=== PATIENT | female | born 1950 | race Caucasian/White ===

== ENCOUNTER 2017-02-20 16:48 | Inpatient (IN) | payer BC ==
[~2017-02-20] VITALS: Ht 170.2 cm; Wt 45.4 kg
[~2017-02-20 16:48] MED LIST: ASPIRIN325 MG PO; AUGMENTIN 875-11 TAB PO; B-12 DOTS500 MCG PO; BAYER CHEWABLE81 MG PO; CIPRO500 MG PO; COUMADIN3 MG PO; ELIQUIS5 MG PO; FEXOFENADINE HC60 MG PO; FOLATE0.4 MG PO; IMODIUM A-D2 MG PO; LOPRESSOR25 MG PO; MAG-OX 400 MG400 MG PO; MAG-OXIDE400 MG PO; NICODERM C1 PATCH .3 TD; NORCO 10/325 TA1 TA1 PO; PROTONIX40 MG PO; PROVENTIL HFA6.7 GM INH; ROCEPHIN 1 GM IN1 GM IV; TUMS500 MG PO; TUSSIONEX 5 ML S5 ML PO; TYLENOL 8 HOUR650 MG PO; VANCOMYCIN250 MG/51 PO
[2017-02-20 17:39] VITALS: BP 109/61; BMI 15.7
[2017-02-20 18:29] LABS: BASOPHILS 0.1 % (0-2); EOSINOPHILS 0.3 % (0-7); HEMATOCRIT 36.5 % (36.0-48.0); HEMOGLOBIN 12.9 g/dL (12-16); IMMATURE GRANULOCYTES 0.5 % (0-5); LYMPHOCYTES 13.5 % (15-50); MCH 33.2 pg (26.0-34.0); MCHC 35.3 g/dL (31.0-37.0); MCV 93.8 fL (80.0-100.0); MONOCYTES 6.5 % (2-11); NEUTROPHILS 79.1 % (40-80); RBC 3.89 10x6/uL (4.00-5.40); RDW 12.2 % (11.5-14.5); WBC 9.2 10x3/uL (4.8-10.8)
[2017-02-20 18:30] LABS: PLATELET COUNT 139 10x3/uL (130-400)
[2017-02-20 19:11] LABS: ALBUMIN 2.2 g/dL (3.4-5.0); ALKALINE PHOSPHATASE 106 U/L (46-116); ALT (SGPT) 11 U/L (10-68); BILIRUBIN - TOTAL 1.11 mg/dL (0.2-1.3); CALC OSMOLALITY 250 mosm/kg (275-300); CALCIUM 8.4 mg/dL (8.5-10.1); CARBON DIOXIDE 34.6 mmol/L (21.0-32.0); CHLORIDE - SERUM 86 mmol/L (98-107); CREATININE - SERUM 0.5 mg/dL (0.6-1.3); GLUCOSE 96 mg/dL (74-106); PROTEIN - SERUM 5.7 g/dL (6.4-8.2); SODIUM 126 mmol/L (136-145); T4 THYROXINE 9.4 ug/dL (4.7-13.3); THYROID STIMULATING HORMONE 1.45 uIU/mL (0.36-3.74); UREA NITROGEN 6 mg/dL (7-18); eGFR NON AFRICAN AMERICAN > 90 mL/min (90-120)
[2017-02-20 19:17] LABS: POTASSIUM - SERUM 2.2 mmol/L (3.5-5.1)
--- NOTE | 2017-02-20 23:39 | NUR ---
IV SITED TO LEFT FOREARM X 2 ATTEMPTS. 22G. GOOD BLOOD RETURN. FLUSHES W/O DIFFICULTY. PT TOLERATED WELL. SIDE RAILS X 2. BED IS LOW. CALL LIGHT IN REACH.
[2017-02-20 23:59] VITALS: BP 88/54
[2017-02-21 04:00] VITALS: BP 94/70
[2017-02-21 05:59] LABS: CALCIUM 8.3 mg/dL (8.5-10.1); CARBON DIOXIDE 34.5 mmol/L (21.0-32.0); CHLORIDE - SERUM 94 mmol/L (98-107); CREATININE - SERUM 0.4 mg/dL (0.6-1.3); GLUCOSE 95 mg/dL (74-106); SODIUM 132 mmol/L (136-145); eGFR NON AFRICAN AMERICAN > 90 mL/min (90-120)
[2017-02-21 06:00] LABS: BASOPHILS 0.3 % (0-2); EOSINOPHILS 0.5 % (0-7); HEMATOCRIT 34.2 % (36.0-48.0); HEMOGLOBIN 12.1 g/dL (12-16); IMMATURE GRANULOCYTES 0.4 % (0-5); LYMPHOCYTES 17.8 % (15-50); MCH 32.5 pg (26.0-34.0); MCHC 35.4 g/dL (31.0-37.0); MCV 91.9 fL (80.0-100.0); MEAN PLATELET VOLUME 10.9 fL (7.4-10.4); MONOCYTES 8.2 % (2-11); NEUTROPHILS 72.8 % (40-80); PLATELET COUNT 152 10x3/uL (130-400); RBC 3.72 10x6/uL (4.00-5.40); RDW 12.1 % (11.5-14.5); WBC 7.6 10x3/uL (4.8-10.8)
[2017-02-21 06:03] LABS: CALC OSMOLALITY 261 mosm/kg (275-300); POTASSIUM - SERUM 4.2 mmol/L (3.5-5.1); UREA NITROGEN 4 mg/dL (7-18)
--- NOTE | 2017-02-21 10:20 | NUR ---
PT RATED PAIN 10/10 ON ABDOMEN, CONSTANT, DULL PAIN. NORCO 5MG TAB GIVEN. DRAIN ON LEFT SIDE OF ABDOMEN LEAKING. DRESSING CHANGED. PT DENIES OTHER NEEDS AT THIS TIME.
--- NOTE | 2017-02-21 10:32 | NUR ---
Wound care consult: Noted wound on plantar surface of right great toe. It measures 1.5cm x 1cm x 0.6cm x 0.4cm from 12-12 oclock. The wound bed is wells necrotic tissue. It is wet and has yellow drainage. No odor is noted. There is also a wound on right lateral foot measuring 1cm x 1cm x 0.4cm. The wound bed is wells and is moist. There is a yellow drainage with no odor. Recommend Maxorb AG to be placed on wound beds and changed daily. Wound care will continue monitoring.
--- NOTE | 2017-02-21 11:09 | NUR ---
PT IN BED SPEAKING ON THE PHONE. NO NEEDS AT THIS TIME.
[2017-02-21 13:40] VITALS: BP 84/49
[2017-02-21 14:09] VITALS: Ht 170.2 cm; Wt 45.4 kg
--- NOTE | 2017-02-21 15:17 | NUR ---
Patient Name: JARED BAIRD Admission Status: Urgent Accout number: [id number] Admission Date: 02-20-2017 : 1950 Admission Diagnosis: Attending: RAFI ENGEL Current LOS: 1 Anticipated DC Date: 02-23-2017 Planned Disposition: Home Primary Insurance: [employer] [facility] EX[facility] Discharge Planning Comments: CM MET WITH PATIENT WITH D/C NEEDS AND PLANS. PATIENT STATED SHE LIVES WITH HER SPOUSE AND HER SISTER (HEMANT) WILL DRIVE HER HOME. PATIENT HAS NO STEPS OR STAIRS AT HOME. PATIENT STATED SHE IS INDEPENDENT WITH HER CARE AND HAS A WALKER, WHEELCHAIR, SHOWER CHAIR, AND BS COMMODE AT HOME. PATIENTS PCP IS DR. ENGEL AND PHARMACY IS [facility]. PATIENT DOES NOT WANT HOME HEALTH AT THIS TIME. CM WILL CONTINUE TO FOLLOW PATIENT WITH D/C NEEDS AND PLANS. PCP DR[facility]- [phone] HEMANT (SISTER) [phone] Bench Scientist: Nadia Liriano Is the patient Alert and Oriented? Yes 0 * How many steps to enter\exit or inside your home? 0 0 * PCP DR. VILLATORO 0 * Pharmacy [facility] * Preadmission Environment Home with Family 0 * ADLs Independent 0 * Equipment Bedside Commode Shower Chair Walker Wheelchair 0 * List name and contact numbers for known caregivers / representatives who currently or will assist patient after discharge: HEMANT (SISTER) [phone] 0 * Community resources currently utilized None 0 * Additional services required to return to the preadmission environment? Yes 0 * Can the patient safely return to the preadmission environment? Yes 0 * Has this patient been hospitalized within the prior 30 days at any hospital? No 0 Grand Total: 0
--- NOTE | 2017-02-21 17:00 | NUR ---
INCONTINENT EPISODE. COMPLETE BED LINEN CHANGE AND CLEAN GOWN PROVIDED. STAGE TWO ULCER NOTED ON MIDDLE OF BACK AND STAGE 2 NOTED ON RIGHT BUTTOCKS, REDNESS NOTED ON RIGHT AND LEFT BUTTOCKS. PULLED UP IN BED AND REPOSITONED.
[2017-02-21 17:15] VITALS: BP 90/48
[2017-02-21 19:00] VITALS: BP 92/50
--- NOTE | 2017-02-22 01:18 | NUR ---
1943)awake/alert incontinent of urine complete linen chge pericare donebrace to rt. wrist with sling intact. fingers nailbeds pink warm blanches well. denies pain at present time. willcontinue to monitor neurovascular for any chges. and follow current plan of care
[2017-02-22 04:00] VITALS: BP 98/56
[2017-02-22 04:55] LABS: BASOPHILS 0.2 % (0-2); EOSINOPHILS 0.6 % (0-7); HEMATOCRIT 33.4 % (36.0-48.0); HEMOGLOBIN 11.7 g/dL (12-16); IMMATURE GRANULOCYTES 0.4 % (0-5); LYMPHOCYTES 23.2 % (15-50); MCH 33.1 pg (26.0-34.0); MEAN PLATELET VOLUME 10.2 fL (7.4-10.4); NEUTROPHILS 66.6 % (40-80); PLATELET COUNT 176 10x3/uL (130-400); RBC 3.53 10x6/uL (4.00-5.40); RDW 12.3 % (11.5-14.5); WBC 8.2 10x3/uL (4.8-10.8)
[2017-02-22 04:56] LABS: MCV 94.6 fL (80.0-100.0)
[2017-02-22 05:05] LABS: CALC OSMOLALITY 270 mosm/kg (275-300); CHLORIDE - SERUM 98 mmol/L (98-107); CREATININE - SERUM 0.4 mg/dL (0.6-1.3); GLUCOSE 99 mg/dL (74-106); SODIUM 137 mmol/L (136-145); UREA NITROGEN 3 mg/dL (7-18); eGFR NON AFRICAN AMERICAN > 90 mL/min (90-120)
[2017-02-22 05:35] LABS: POTASSIUM - SERUM 2.4 mmol/L (3.5-5.1)
--- NOTE | 2017-02-22 07:24 | NUR ---
PT RESTING COMFORTABLY ON HER BACK. ANSWERS QUESTION APPROPRIATELY. REPORTS NO PAIN AT THIS TIME. LIV ON RIGHT WRIST WITH SLING. R HAND IS WARM WITH SOME SWELLING. L FOREARM PERIPHERAL IV INFUSING NS AT 100ML/HR. BED LOW POSITION, BED ALARM ON, SIDE RAILS UP X 2, CALL LIGHT IN REACH. REST OF ASSESSMENT IN ASSESMENT FLOW SHEET.
--- NOTE | 2017-02-22 07:31 | NUR ---
PT AWAKE AND ALERT. BREATHING TREATMENT IN PROGRESS. RATES PAIN 8/10 ON LEFT HIP AND KNEE. LEFT KNEE HAS A LITTLE BIT OF SWELLING. LEFT FOREARM PERIPHERAL IV INFUSING NS AT 75ML/HR. LUNGS SOUNDS ARE CLEAR THROUGH OUT. BS ACTIVE X 4 QUADRANTS. SCD'S ON R AND L CALF. CURRENTLY RESTING ON HER BACK. BED ALARM ON, SIDE RAILS UP X 2. DENIES OTHER NEEDS AT THIS TIME.
[2017-02-22 08:20] LABS: FOLATE (FOLIC ACID) - SERUM 8.6 ng/mL (>3.0)
[2017-02-22 09:49] VITALS: BP 109/61
--- NOTE | 2017-02-22 09:53 | NUR ---
INCONTINENT EPISODE. PERICARE PROVIDED, COMPLETE BEDING CHANGE. ATTEMPTED TO USE BED JUAREZ. NO BM NOTED AT THIS TIME. PT RESTING COMFORTABLY. BED LOW POSITION. CALL LIGHT IN REACH.
--- NOTE | 2017-02-22 09:58 | NUR ---
Nutrition Calorie Count: Pt was on a regular diet at this time. Breakfast 02/21/17:361 kcal26 g protein Lunch 02/21/17:319 kcal 6 g protein Dinner02/21/17: 163 kcal 3 g protein Total02/21/17:843 kcal35 g protein Pt is not meeting est nutritional needs with po intake. Will d/c calorie count r/t diet change to clear liquid. RD following.
--- NOTE | 2017-02-22 14:09 | NUR ---
PT HAD BM. BED PAD CHANGED. PERICARE PROVIDED. CLEAN GOWN PROVIDED. DENIES OTHER NEEDS AT THIS TIME.
[2017-02-22 14:21] VITALS: BP 106/61
--- NOTE | 2017-02-22 16:47 | NUR ---
INCONTINENT EPISODE. BED PAD AND CLEAN GOWN PROVIDED. PERICARE GIVEN. PULLED UP IN BED AND REPOSITONED. PT SISTER IN ROOM WITH HER. DENIES OTHER NEEDS AT THIS TIME.
[2017-02-22 17:01] VITALS: BP 103/59
--- NOTE | 2017-02-22 17:37 | HP ---
PATIENT: JARED BAIRD MEDICAL RECORD: [id number] ACCOUNT: [id number] LOCATION:[id number] : 54 ADMISSION DATE: 02/20/17 HISTORY AND PHYSICAL EXAMINATION DATE OF ADMISSION: 02/20/2017. CHIEF COMPLAINT: Confusion. HISTORY OF PRESENT ILLNESS: The patient is a 66-year-old female, who over the last couple of days, had intermittent confusion. The patient states she stopped drinking on 15 of January. She is accompanied by her sister and brought along through here from [place]. The patient wishes to be admitted for her confusion evaluation. She also has suffered from malnutrition. PAST MEDICAL HISTORY: Significant that she has had a history of lung biopsy in the past. Also, she has had a history of tachycardia, hyperlipidemia, gastroesophageal reflux, and hypertension. She has had lumbar fracture in the past. FAMILY HISTORY: Father of lung cancer. Mother had diabetes mellitus. 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 The patient states she is a moderate alcohol user, but has stopped some 3 weeks ago. She was born and raised in [place]. She has been in [place] for 30+ years. Her habit is 2 packs per day smoker. MEDICATIONS: Includes Protonix 40 mg once a day and Detrol 2 mg p.o. b.i.d. ALLERGIES: She has no known drug allergies. REVIEW OF SYSTEMS: CONSTITUTIONAL: She denies any headaches, seizure or syncope. She denies change in visual or auditory acuity. PULMONARY: She does report having cough and congestion. CARDIOVASCULAR: She had no chest pain, palpitation, PND or orthopnea. GASTROINTESTINAL: No chronic nausea, vomiting, melena or hematochezia. GENITOURINARY: No urgency, frequency or dysuria. PHYSICAL EXAMINATION: VITAL SIGNS: The patient's weight was 100 pounds, her BMI 16.1, pulse 110, blood pressure is 80/60 and temperature is 97.4. GENERAL: She is alert. She is oriented to person, place, but not time. HEENT: Head is normocephalic. No lesions. Ears: TMs clear. Eyes: Pupils equal, round and reactive to light. Her extraocular movements are intact. Nasal cavity, oral cavity and oropharynx clear. NECK: Supple. There is no adenopathy. HEART: Has a regular rate and rhythm without any murmurs, gallops or rubs. LUNGS: Clear. ABDOMEN: Soft, bowel sounds are positive. EXTREMITIES: The patient does have an ulcer on the medial aspect of the right great toe, which is approximately 3 x 3 cm. ASSESSMENT: Acute confusion, history of alcoholism, tachycardia, right great toe ulceration and peripheral neuropathy. HISTORY AND PHYSICAL [id number] JARED BAIRD PLAN: The patient will be admitted. MRI of the brain will be obtained. She will be placed on DT precautions. Also calorie count will be performed. Continue to evaluate. TRANSINT:[id number] Voice Confirmation ID: [id number] DOCUMENT ID: [id number] RAFI ENGEL MD at 1737 CC: [id number] DICTATION DATE: 02/21/17 1635 CERTIFIED FRAUD EXAMINER: 02/21/17 1731 ADM IN [place] [id number] [place] [id number]
--- NOTE | 2017-02-22 19:00 | NUR ---
REPORT RECEIVED AND CARE OF PT ASSUMED. PT LYING IN SEMI RUVALCABA'S POSITION WITH EYES CLOSED. RIGHT WRIST IN BRACE AND SLING. DRESSING ON RIGHT FOOT CLEAN AND DRY. IV IN LEFT FA PATENT WITH D5NS INFUSING AT 100 ML /HR. WILL MONITOR CLOSLEY FOR NEEDS.
[2017-02-22 20:00] VITALS: BP 110/68
--- NOTE | 2017-02-22 22:17 | NUR ---
HS MEDICATIONS GIVEN. WILL CONTINUE TO MONITOR FOR NEEDS.
[2017-02-23] VITALS: BP 87/45
--- NOTE | 2017-02-23 00:17 | NUR ---
ASSISTED PT TO USE BEDPAN TO COLLECT URINE FOR UA. DELIVERED TO LAB.
[2017-02-23 00:40] LABS: APPEARANCE CLOUDY (CLEAR); BACTERIA FEW /hpf (NONE SEEN); BILIRUBIN NEGATIVE (NEGATIVE); COLOR YELLOW (YELLOW); EPITHELIAL CELLS 0-5 /hpf (0-5); GLUCOSE NEGATIVE (NEGATIVE); KETONE NEGATIVE (NEGATIVE); LEUKOCYTE ESTERASE 2+ (NEGATIVE); NITRITE NEGATIVE (NEGATIVE); PROTEIN NEGATIVE (NEGATIVE); RED CELLS - URINE 0-5 /hpf (0-5); SPECIFIC GRAVITY 1.005 (1.005-1.020); UROBILINOGEN NORMAL (NORMAL)
[2017-02-23 00:41] LABS: YEAST >1+ WITH HYPHAE /hpf (NONE SEEN)
[2017-02-23 04:00] VITALS: BP 93/47
[2017-02-23 04:25] LABS: BASOPHILS 0.3 % (0-2); EOSINOPHILS 1.4 % (0-7); HEMATOCRIT 32.5 % (36.0-48.0); IMMATURE GRANULOCYTES 0.4 % (0-5); LYMPHOCYTES 26.6 % (15-50); MCH 32.2 pg (26.0-34.0); MCHC 33.8 g/dL (31.0-37.0); MEAN PLATELET VOLUME 10.1 fL (7.4-10.4); MONOCYTES 8.7 % (2-11); NEUTROPHILS 62.6 % (40-80); PLATELET COUNT 206 10x3/uL (130-400); RBC 3.42 10x6/uL (4.00-5.40); RDW 12.4 % (11.5-14.5); WBC 7.2 10x3/uL (4.8-10.8)
[2017-02-23 04:42] LABS: CALC OSMOLALITY 269 mosm/kg (275-300); CALCIUM 8.1 mg/dL (8.5-10.1); CARBON DIOXIDE 33.8 mmol/L (21.0-32.0); CHLORIDE - SERUM 101 mmol/L (98-107); CREATININE - SERUM 0.4 mg/dL (0.6-1.3); GLUCOSE 105 mg/dL (74-106); SODIUM 136 mmol/L (136-145); UREA NITROGEN 6 mg/dL (7-18); eGFR NON AFRICAN AMERICAN > 90 mL/min (90-120)
[2017-02-23 04:43] LABS: POTASSIUM - SERUM 2.7 mmol/L (3.5-5.1)
--- NOTE | 2017-02-23 04:50 | NUR ---
PT HAS HAD 3 INCONTINENT URINE EPISODES THIS SHIFT REQUIRING COMPLETE LINEN CHANGE AND ABIGAIL CARE.
[2017-02-23 08:32] VITALS: BP 114/63
--- NOTE | 2017-02-23 09:17 | NUR ---
CM REASSESSMENT NOTE: REFERRAL SENT TO [facility].
[2017-02-23 14:13] VITALS: BP 113/68
[2017-02-23 16:46] VITALS: BP 120/67
--- NOTE | 2017-02-23 17:38 | NUR ---
IV DISCONTINUED WITH CATHETER INTACT AT THIS TIME PT GIVEN DISCHARGE INSTRUCTIONS AT THIS TIME
--- NOTE | 2017-02-23 18:22 | NUR ---
PT TAKEN VIA WHEELCHAIR VIA PRIVATE VEHICLE AT THIS TIME
== END 2017-02-23 18:23 | disposition home or self-care (01) | DRG 896 ==
LOC: D.MS 16:48
PROVIDERS: ADMIT Family Medicine
DX: F10.231 Alcohol dependence with withdrawal delirium (principal); E43 Unspecified severe protein-calorie malnutrition; L03.115 Cellulitis of right lower limb; Z68.1 Body mass index [BMI] 19.9 or less, adult; R44.3 Hallucinations, unspecified; L97.519 Non-pressure chronic ulcer of other part of right foot with unspecified severity; S62.101A Fracture of unspecified carpal bone, right wrist, initial encounter for closed fracture; R00.0 Tachycardia, unspecified; E87.6 Hypokalemia; G62.9 Polyneuropathy, unspecified

== ENCOUNTER → 2019-02-06 09:07 | Outpatient (CLI) | payer MEDICARE, OTHER ==
[2017-02-21 14:09] VITALS: BMI 15.6
== END | disposition home or self-care (01) ==
LOC: D.RAD 09:07
PROVIDERS: ATTEND Neurological Surgery
DX: M54.16 Radiculopathy, lumbar region (principal)